=== PATIENT | female | born 1940 | race Caucasian/White ===

== ENCOUNTER → 2020-03-09 14:09 | Outpatient (CLI) | payer MEDICARE, MEDICAID, SELFPAY ==
[2020-03-09 14:18] LABS: Basophils # 0.1 K/mm3 (0-0.2); Basophils % 0.8 % (0.1-2.0); Eosinophils # 0.1 K/mm3 (0.0-0.4); Eosinophils % 2.4 % (0.1-12.0); Hematocrit 28.9 % (37.0-47.0); Hemoglobin 8.5 g/dL (12.2-16.2); Lymphocytes # 1.1 K/mm3 (0.7-4.5); Lymphocytes % 19.3 % (10-50); Mean Corpuscular HGB Conc 29.2 g/dL (31.8-35.4); Mean Corpuscular Hemoglobin 25.9 pg (27.0-31.2); Mean Corpuscular Volume 88.7 fl (81-99); Mean Platelet Volume 10.8 fl (7.4-10.4); Monocytes # 0.3 K/mm3 (0.1-1.0); Monocytes % 5.6 % (1.7-9.3); Neutrophils # 4.2 K/mm3 (1.8-7.8); Neutrophils % 71.8 % (37.0-80.0); Platelet Count 198 K/mm3 (142-424); Red Blood Count 3.26 M/mm3 (4.20-5.40); Red Cell Distribution Width 15.5 % (11.5-17.5); White Blood Count 5.9 K/mm3 (4.8-10.8)
[2020-03-09 14:44] LABS: Chloride 96 mmol/L (98-107)
[2020-03-09 14:45] LABS: Potassium 4.2 mmoL/L (3.5-5.1); Sodium 135 mmol/L (136-145)
[2020-03-09 14:47] LABS: Alanine Aminotransferase 18 U/L (12-78); Alkaline Phosphatase 191 U/L (38-126); Anion Gap 16.2 mEq/L (5-15); Aspartate Amino Transferase 33 U/L (14-36); Bilirubin,Total 0.4 mg/dl (0.2-1.3); Blood Urea Nitrogen 45 mg/dl (7-17); Carbon Dioxide 27 mmol/L (22.0-30.0); Cholesterol 199 mg/dl (140-200); Estimated Glomerular Filt Rate 31 ml/min (>60); GFR (African American) 37 ML/MIN (>60); Iron 58 ug/dL (37-170); Triglycerides 242 mg/dl (30-150); VLDL Cholesterol 48 mg/dL (0-40)
[2020-03-09 14:48] LABS: Albumin Level 4.2 g/dl (3.5-5.0); Calcium 10.3 mg/dl (8.4-10.2); Globulin 4.3 g/dL (1.3-3.2); Glucose 366 mg/dl (74-100); HDL Cholesterol 32 mg/dl (40-60); Total Protein,Serum 8.5 g/dl (6.3-8.2)
[2020-03-09 14:49] LABS: Chol/HDL Ratio 6.2 (1-3.5)
[2020-03-09 14:59] LABS: Direct LDL Cholesterol 101.97 mg/dL (100-129)
[2020-03-09 15:07] LABS: T4 (Thyroxine) 10.3 ug/dl (5.53-11.0)
[2020-03-09 15:21] LABS: Thyroid Stimulating Hormone 1.41 uIU/mL (0.465-4.68)
[2020-03-09 15:23] LABS: Ferritin 11.3 ng/ml (11.1-264)
[2020-03-09 15:47] LABS: Hemoglobin A1C 8.5 % (4.0-6.0)
== END ==
PROVIDERS: Visit Provider Family Medicine
DX: D64.9 Anemia, unspecified (principal); E03.9 Hypothyroidism, unspecified; E11.9 Type 2 diabetes mellitus without complications; M15.4 Erosive (osteo)arthritis; M25.512 Pain in left shoulder; Z87.19 Personal history of other diseases of the digestive system; Z79.4 Long term (current) use of insulin
CPT/HCPCS: 80053; 80061; 82728; 83036; 83540; 84436; 84443; 85025

== ENCOUNTER → 2020-03-18 10:59 | Outpatient (CLI) | payer MEDICARE, MEDICAID, SELFPAY ==
[2020-03-18 15:09] LABS: Coronavirus 19 IgG Antibody Negative (Negative); Coronavirus 19 IgM Antibody Negative (Negative)
== END ==
PROVIDERS: PCP Family Medicine; Visit Provider Internal Medicine Gastroenterology
DX: Z01.812 Encounter for preprocedural laboratory examination (principal); Z11.52 Encounter for screening for COVID-19; Z13.810 Encounter for screening for upper gastrointestinal disorder; Z12.11 Encounter for screening for malignant neoplasm of colon; D50.9 Iron deficiency anemia, unspecified
CPT/HCPCS: 86328

== ENCOUNTER 2020-03-20 09:37 | Day surgery (SDC) | payer MEDICARE, MEDICAID, SELFPAY ==
[2020-03-20] VITALS (10 sets, daily range): BP systolic 113–165; BP diastolic 47–90; PULSE 69–84; RESP 18–20; TEMP 36.4; O2SAT 95–98; BMI 28.3
[2020-03-20 10:11] LABS: POC Glucose,Bedside 223 (70-110)
--- NOTE | 2020-03-20 10:47 | HMH.ANESCL ---
[facility] Anesthesia Checklist - Patient Identification Patient Identification: Arm Band, Verbal (Name & ) - Structural Data Admitted From: Home Planned Operative Procedure/s: colon Consent for Planned Operative Procedure(s) Verified: Yes Verified Documents: History and Physical - NPO Status Verified Time NPO: 00:00 - Chart Verification Results Verified: CBC, BMP - Additional verifications Patient : No Anesthesia Reactions: No Hx Blood Transfusions: No Blood Transfusion Reaction: No Cephalosporin Allergy: No Previous Colonoscopy: Yes - Cardiovascular Assessment Heart Sounds: S1 & S2 Pulse Strength: Baseline Pulse Rhythm: Regular Peripheral Edema: No - Airway Assessment C-Spine Mobility Assessed: Yes TMJ Mobility Assessed: Yes Dentition: Edentulous - Neurological Assessment Level of Consciousness: Awake, Alert, Appropriate Hx Seizures: No Numbness or tingling in extremities: No - Anesthesia Plan Anesthesia Risk discussed: Yes Anesthesia Plan: Verified ASA Class: III Anesthesia Type: MAC [facility] History I have reviewed the patient's past medical history: Yes Medical History: Reports:: Asthma, Coronary Artery Disease, Diabetes Mellitus Type 2, Hypertension, Internal Pacemaker, Myocardial Infarction Denies:: Cancer, Diabetes Mellitus Type 1, MRSA, Seizures *Have you ever received a pneumonia vaccine?: No *Have you received a flu vaccine this season?: No Other Medical History: Reports: Anemia, Arthritis, Hypothyroidism, Thyroid Disease Anesthesia experience/problems:: none Laterality Cases: Bilateral: Cataract Other Surgeries: Yes: Cholecystectomy, Hysterectomy-Total, Pacemaker Amputation: No Fractures: No - *Social History Last grade of school completed: GED Smoking Status: Former smoker Alcohol Intake: never Substance Use Type: denies use *Occupational Status:: retired Housing: other Household Members: none *Travel in the last 8 weeks: None Family Hx:: Other
--- NOTE | 2020-03-20 11:12 | P.PN_ITS ---
[facility] Anesthesia Checklist - Patient Identification Patient Identification: Arm Band - Structural Data Admitted From: Home Planned Operative Procedure/s: general Consent for Planned Operative Procedure(s) Verified: Yes Verified Documents: Surgical Consent - Additional verifications Anesthesia Reactions: No Hx Blood Transfusions: No Blood Transfusion Reaction: No Cephalosporin Allergy: No - Anesthesia Plan Anesthesia Risk discussed: Yes ASA Class: III Anesthesia Type: General [facility] History I have reviewed the patient's past medical history: Yes Medical History: Reports:: Asthma, Coronary Artery Disease, Diabetes Mellitus Type 2, Hypertension, Internal Pacemaker, Myocardial Infarction Denies:: Cancer, Diabetes Mellitus Type 1, MRSA, Seizures *Have you ever received a pneumonia vaccine?: No *Have you received a flu vaccine this season?: No Other Medical History: Reports: Anemia, Arthritis, Hypothyroidism, Thyroid Disease. Denies: Blood Transfusion Reaction Anesthesia experience/problems:: none Laterality Cases: Bilateral: Cataract Other Surgeries: Yes: Cholecystectomy, Hysterectomy-Total, Pacemaker Amputation: No Fractures: No - *Social History Last grade of school completed: GED Smoking Status: Former smoker Alcohol Intake: never Alcohol Intake Frequency:: 0-2 drinks per day Substance Use Type: denies use *Occupational Status:: retired Housing: other Household Members: none *Travel in the last 8 weeks: None Family Hx:: Other
--- NOTE | 2020-03-20 11:26 | P.PCN_ITS ---
[facility] Procedure Note Procedure Note:: Upper Endoscopy Procedure Report: Esophagogastroduodenoscopy with cold biopsies and APC ablation Endoscopost: Jose Crook II, MD Referring Physician: Iam Sanchez MD Date of Procedure: March 20, 2020 Equipment: Olympus GIF 180 standard upper endoscope Sedation: MAC sedation Indications: Mrs. Verduzco is an 80-year-old female who was recently hospitalized in [place] for iron deficiency anemia and transferred to [facility] where she received 1 unit of PRBCs. The patient did have repeat blood work from March 09, 2020 that showed hemoglobin 8.5 and hematocrit 28.9. Her creatinine was slightly elevated at 1.60. The patient reports no melena or hematochezia. She reports no heartburn, reflux, indigestion or dyspepsia. Procedure: Prior to the procedure, a history and physical exam was performed, and patient's medications and allergies were reviewed. The risks, benefits and alternatives of the sedation and procedure were discussed with the patient. All questions were answered and informed consent was obtained. The patient was brought to the procedure room. Patient identification and proposed procedure were verified by the physician and the nurse. The patient was placed in a left lateral decubitus position and the scope was passed under direct vision. Throughout the procedure, the patient's blood pressure, pulse, and oxygen saturations were monitored continuously. The upper GI endoscopy was accomplished without difficulty. The patient tolerated the procedure well. Findings: The scope was passed directly into the upper esophagus and advanced to the third portion of the duodenum. There were several angiodysplasia/AVMs of the post bulbar duodenum that were ablated/coagulated using APC. There were 1 or 2 within the duodenal bulb that were coagulated. The remainder of the post bulbar duodenum was normal. The scope was withdrawn through a normal duodenal bulb and pylorus into the stomach. There was mild reactive gastropathy of the antrum. There were several scattered angiodysplasia/AVMs of the stomach in the antrum, body and fundus that had a small amount of heme/coffee-ground adjacent to the AVM. The majority of these were ablated/coagulated using APC. Upon retroflexion there was no hiatal hernia. 2 biopsies were taken in the antrum and along the lesser curvature for histology to rule out gastritis and/or H pylori. The scope was then withdrawn into the esophagus. There was no evidence of reflux esophagitis or Mehta's. The remainder of the esophageal mucosa was normal. Impression: 1. 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 Mild reactive gastropathy of gastric antrum Plan: I do feel that the patient's iron deficiency anemia is related to the angiodysplasia/AVMs. I will proceed with colonoscopy. I would recommend parenteral iron infusion today if possible. I will follow-up the biopsies.
--- NOTE | 2020-03-20 11:46 | P.PCN_ITS ---
[facility] Procedure Note Procedure Note:: Colonoscopy Procedure Report: Colonoscopy with cold snare polypectomy and APC ablation Endoscopist: Jose Crook II, MD Referring physician: Iam Sanchez MD Date of Procedure: March 20, 2020 Equipment: Olympus 180 variable stiffness pediatric colonoscope Sedation: MAC sedation Indication: Mrs. Verduzco is an 80-year-old female with iron deficiency anemia. The patient was admitted in [facility] and transferred to [facility]. She received 1 unit of PRBCs. Her more recent lab work had shown moderate anemia with hemoglobin 8.5 and hematocrit 28.9 (on March 09, 2020). Her iron level was 58 with ferritin of 11.3 and evidence of iron deficiency. Her creatinine was 1.60. The patient reports no rectal bleeding, abdominal pain, change in her bowel habits or family history of colon cancer. She does have some mild chronic constipation when she was on opiate pain medications. H er last colonoscopy was approximately 15 years ago. Procedure: Prior to the procedure, a history and physical exam was performed, and patient's medications and allergies were reviewed. The risks, benefits and alternatives of the sedation and procedure were discussed with the patient. All questions were answered and informed consent was obtained. The patient was brought to the procedure room. Patient identification and proposed procedure were verified by the physician and the nurse. The patient was placed in a left lateral decubitus position and the scope was passed under direct vision. Throughout the procedure, the patient's blood pressure, pulse, and oxygen saturations were monitored continuously. The colonoscopy was accomplished without difficulty. The patient tolerated the procedure well. Findings: On digital rectal examination there was normal rectal tone. There were no external hemorrhoids. The colonoscope was introduced through the anal canal to the rectum and advanced to the cecum. The ileocecal valve and appendiceal orifice were identified. The scope was advanced a short distance into the ileum which appeared grossly normal. The scope was then withdrawn into the colon. The cecum was normal. There were 3 polyps in the ascending colon (4, 5 and 7 mm) and one polyp in the descending colon (3 mm) which were all removed via cold snare polypectomy. There were at least 2 angiodysplasias in the descending colon that were cauterized/ablated (coagulated) via APC.. There were a few mildly scattered diverticuli throughout the descending and sigmoid colon (LEFT colon). The rectum itself was normal. Upon retroflexion within the rectum there were grade 1-2 internal hemorrhoids. The preparation was excellent throughout with Marianna Preparation Score of 9. The cecal time was 12 minutes. Impression: 1. Colonic polyps x4 2. Colonic angiodysplasias status post APC ablation 3. Mild left-sided diverticulosis 4. Grade 1-2 internal hemorrhoids Plan: I do feel that the patient's iron deficiency anemia is related to the upper and lower tract AVMs/angiodysplasias. I would recommend parenteral/intravenous iron infusion today. Certainly some of her anemia may be related to the renal insufficiency. I will follow up the polyp histology and I do not feel that she will require any further preventive/surveillance colonoscopy. I would encourage a fiber bowel regimen on a maintenance basis.
[2020-03-20 13:26] LABS: Hematocrit 28.7 % (37.0-47.0); Hemoglobin 8.8 g/dL (12.2-16.2)
== END 2020-03-20 14:30 | disposition home or self-care (01) ==
PROVIDERS: PCP Family Medicine; Visit Provider Internal Medicine Gastroenterology
PROC: 0DJ08ZZ Inspection of Upper Intestinal Tract, Via Natural or Artificial Opening Endoscopic (ICD-10-PCS; CPT 43235; principal; 2020-03-20 10:30)
DX: K63.5 Polyp of colon (principal); K55.20 Angiodysplasia of colon without hemorrhage; K57.30 Diverticulosis of large intestine without perforation or abscess without bleeding; K64.0 First degree hemorrhoids; K31.811 Angiodysplasia of stomach and duodenum with bleeding; K31.9 Disease of stomach and duodenum, unspecified; E11.9 Type 2 diabetes mellitus without complications; I10 Essential (primary) hypertension; Z95.0 Presence of cardiac pacemaker; I25.2 Old myocardial infarction; J45.909 Unspecified asthma, uncomplicated; I25.10 Atherosclerotic heart disease of native coronary artery without angina pectoris
CPT/HCPCS: 43239; 45385; 36415; 82962; 85014; 85018; 88305; C2618; J1756

== ENCOUNTER → 2020-03-22 10:53 | Outpatient (CLI) | payer MEDICARE, MEDICAID, SELFPAY ==
[2020-03-27 11:56] LABS: Occult Blood,Stool Positive (Negative)
== END ==
PROVIDERS: Visit Provider Internal Medicine Gastroenterology
DX: K92.1 Melena (principal)
CPT/HCPCS: 82272; G0328

== ENCOUNTER → 2020-03-23 11:03 | Outpatient (CLI) | payer MEDICARE, MEDICAID, SELFPAY ==
[2020-03-27 11:56] LABS: Occult Blood,Stool Positive (Negative)
== END ==
PROVIDERS: Visit Provider Internal Medicine Gastroenterology
DX: K92.1 Melena (principal)
CPT/HCPCS: 82272; G0328

== ENCOUNTER → 2020-03-25 11:11 | Outpatient (CLI) | payer MEDICARE, MEDICAID, SELFPAY ==
[2020-03-27 11:56] LABS: Occult Blood,Stool Negative (Negative)
== END ==
PROVIDERS: Visit Provider Internal Medicine Gastroenterology
DX: D64.9 Anemia, unspecified (principal)
CPT/HCPCS: 82272; G0328

== ENCOUNTER → 2020-03-27 10:39 | Outpatient (CLI) | payer MEDICARE, MEDICAID, SELFPAY ==
--- NOTE | 2020-03-27 10:49 | CT_ITS ---
PROCEDURE: CT CHEST WO CON CLINICAL INDICATION: posterior chest wall pain, left side back pain COMPARISON: No exams were available for comparison TECHNIQUE: Axial images obtained with sagittal and coronal reformats. All CT scans at the facility use one or more dose reduction, viz: automated exposure control, ma/kV adjustment per patient size (including targeted exams where dose is matched to indication, i.e. head), or iterative reconstruction technique. FINDINGS: There has been a prior CABG with mild cardiomegaly. Atherosclerotic changes involve the thoracic aorta. Prior right thyroidectomy. Cardiac pacemaker device is present. Atelectatic or fibrotic changes are present in the lingula, right middle lobe, and left lower lobe and right lower lobe medially. A noncalcified nodule is present in the right middle lobe at 9 by 7 mm. A 4 mm noncalcified nodules present in the right upper lobe posteriorly image 23. 4 mm noncalcified nodules present in the right upper lobe medially and inferiorly image 37. 4 mm noncalcified nodules present in the left lower lobe image number 61. There is mild bronchial thickening. No effusions. No areas of infiltrate. There is diffuse vascular calcification. A 1.5 cm hypodensity is present in the upper pole of the kidney on the left consistent with a cyst. No acute bony findings. Degenerative changes are present in the thoracic spine. IMPRESSION: 1. Scattered small noncalcified pulmonary nodules the largest in the right middle lobe at 9 mm. Suggest 3 month follow-up to confirm short term stability. Neoplasm is not excluded. 2. Scattered atelectatic changes Dictated by: South Cortes MD 03/27/2020 11:37 South Cortes MD in [place] 03/27/2020 11:37
== END ==
PROVIDERS: PCP Family Medicine; Visit Provider Family Medicine
DX: R07.89 Other chest pain (principal)
CPT/HCPCS: 71250